=== PATIENT | female | born 1950 | race Caucasian/White ===

== ENCOUNTER 2016-08-02 11:15 | Outpatient (CLI) | payer MEDICARE ==
[2016-08-02 15:51] LABS: MNO Fail-Action Taken COMPLETE; MNO Fail-Storage NOT STORED; MNO Fail/No ABN COMPLETE
== END 2016-08-02 11:16 | disposition home or self-care (01) ==
LOC: NAVSJIPCSP 11:15
PROVIDERS: ATTEND Psychiatry & Neurology Neurology
DX: F03.90 Unspecified dementia, unspecified severity, without behavioral disturbance, psychotic disturbance, mood disturbance, and anxiety (principal); E55.9 Vitamin D deficiency, unspecified
CPT/HCPCS: 82306; 82607; 82746; 84443; 85652; 86140

== ENCOUNTER 2016-08-09 10:34 | Outpatient (CLI) | payer MEDICARE | END 2016-08-09 10:35 | disposition home or self-care (01) | LOC: NAV LAB 10:34 | PROVIDERS: ATTEND Psychiatry & Neurology Neurology | DX: E55.9 Vitamin D deficiency, unspecified (principal); F03.90 Unspecified dementia, unspecified severity, without behavioral disturbance, psychotic disturbance, mood disturbance, and anxiety | CPT/HCPCS: 84425 ==

== ENCOUNTER 2019-05-05 16:52 | Outpatient (CLI) | payer MEDICARE ==
--- NOTE | 2019-05-05 17:21 | RAD ---
2 views chest: 05/05/2019 COMPARISON: None HISTORY: Tuberculosis screening FINDINGS: No pneumothorax or pleural fluid. No focal consolidation or alveolar edema. Heart and media stinal contours are unremarkable. IMPRESSION: No acute findings. No radiographic evidence of tuberculosis.
== END 2019-05-05 16:53 | disposition home or self-care (01) ==
LOC: NAV RAD 16:52
PROVIDERS: ATTEND Family Medicine
DX: Z11.1 Encounter for screening for respiratory tuberculosis (principal)
CPT/HCPCS: 71046